=== PATIENT | female | born 1940 | race Caucasian/White ===

== ENCOUNTER → 2016-12-24 | Outpatient (CLI) | payer MEDICARE | END | disposition home or self-care (01) | LOC: EDSTATUS 09:00 → CFH 09:04 | PROVIDERS: ATTEND Internal Medicine | DX: I34.0 Nonrheumatic mitral (valve) insufficiency (principal); G45.9 Transient cerebral ischemic attack, unspecified | CPT/HCPCS: 93306 ==

== ENCOUNTER → 2018-04-11 | Outpatient (CLI) | payer MEDICARE | END | disposition home or self-care (01) | LOC: CVU 09:41 | PROVIDERS: ATTEND Internal Medicine Cardiovascular Disease | DX: I08.0 Rheumatic disorders of both mitral and aortic valves (principal) | CPT/HCPCS: 93306 ==

== ENCOUNTER 2019-07-30 08:00 | Day surgery (SDC) | payer MEDICARE ==
[~2019-07-30] VITALS: Ht 162.6 cm; Wt 62.0 kg
[2019-07-30 08:28] VITALS: BP 173/84
[2019-07-30] MEDS ORDERED: SODIUM CHLORIDE 0.9% 1,000 ML IV SCH (08:30)
[2019-07-30] MEDS ORDERED: CEFAZOLIN PMX 1GM/50ML 50 ML IV ONE (08:30)
[2019-07-30] MEDS ORDERED: CEFAZOLIN PMX 1GM/50ML 50 ML ONE (08:34)
[2019-07-30] MEDS ORDERED: MIDAZOLAM 1 MG/ML, 5ML ONE ×2 (09:23→09:24)
[2019-07-30] MEDS ORDERED: FENTANYL PF 100 MCG/2ML ONE (09:23)
[2019-07-30] MEDS ORDERED: NALOXONE 1 MG/ML, 2ML ONE (09:24)
[2019-07-30] MEDS ORDERED: FLUMAZENIL 0.1 MG/1 ML, 5ML ONE (09:24)
[2019-07-30] MEDS ORDERED: LIDOCAINE 1%, 10ML ONE (09:32)
[2019-07-30] MEDS ORDERED: LIDOCAINE 1%, 20ML ONE (09:32)
== END 2019-07-30 12:10 | disposition home or self-care (01) ==
LOC: OUT 08:00
PROVIDERS: ATTEND Internal Medicine Hematology & Oncology
DX: C50.812 Malignant neoplasm of overlapping sites of left female breast (principal)
CPT/HCPCS: 36561; 76937; 77001; 99156; 99157; C1788; C1894; J0690; J1642; J2250; J3010; J7030; J2310

== ENCOUNTER → 2019-08-05 | Outpatient (CLI) | payer MEDICARE | END | disposition home or self-care (01) | LOC: CVU 13:46 | PROVIDERS: ATTEND Internal Medicine Hematology & Oncology | DX: C50.812 Malignant neoplasm of overlapping sites of left female breast (principal); I08.8 Other rheumatic multiple valve diseases | CPT/HCPCS: 93306; 93356 ==

== ENCOUNTER → 2019-11-30 | Outpatient (CLI) | payer MEDICARE ==
[~2019-11-30] MED LIST: ASPI81TA45 PO; LOSA25TA25 PO; MELA5TAB14 PO; OMEP20TA62 PO; UBID100C24 PO; VITA1CAP PO
== END | disposition home or self-care (01) ==
LOC: STAR 14:17
PROVIDERS: ATTEND Anesthesiology
DX: Z01.812 Encounter for preprocedural laboratory examination (principal); Z20.828 Contact with and (suspected) exposure to other viral communicable diseases
CPT/HCPCS: 36415; 87635

== ENCOUNTER 2019-12-04 13:15 | Observation (INO) | payer MEDICARE ==
[~2019-12-04] VITALS: Ht 167.6 cm; Wt 59.9 kg
[2019-12-04] MEDS ORDERED: LACTATED RINGERS 1,000 ML IV SCH ×2 (13:34→20:00)
[2019-12-04] MEDS ORDERED: LIDOCAINE-MPF 1%, 2ML ONE (13:57)
[2019-12-04] MEDS ORDERED: LIDOCAINE-MPF 1%, 2ML INFIL ONE (14:00)
[2019-12-04] MEDS ORDERED: CHLORHEXIDINE 15 ML UDC ONE (14:05)
[2019-12-04] MEDS ORDERED: PROPOFOL 50 ML ONE (15:02)
[2019-12-04] MEDS ORDERED: MIDAZOLAM 1 MG/ML, 2ML ONE (15:02)
[2019-12-04] MEDS ORDERED: FENTANYL PF 250 MCG/5ML ONE (15:02)
[2019-12-04] MEDS ORDERED: EPINEPHRINE 1 MG/ML, 1ML ONE (15:10)
[2019-12-04] MEDS ORDERED: ISOSULFAN BLUE 10 MG/ML, 5ML IV ONE (15:10)
[2019-12-04] MEDS ORDERED: BUPIVACAINE/PF 0.5% ONE (15:10)
[2019-12-04] MEDS ORDERED: SCOPOLAMINE 1MG PATCH TD ONE (15:15)
[2019-12-04] MEDS ORDERED: ONDANSETRON 2MG/ML, 2ML ONE (15:26)
[2019-12-04] MEDS ORDERED: DEXAMETHASONE 4 MG/ML, 1ML ONE (15:26)
[2019-12-04] MEDS ORDERED: CEFAZOLIN 1,000 MG ONE ×2 (16:12→17:25)
[2019-12-04] MEDS ORDERED: BACITRACIN 50,000 UNIT ONE ×2 (16:12→17:26)
[2019-12-04] MEDS ORDERED: GENTAMICIN 80 MG/2 ML ONE ×2 (16:12→17:26)
[2019-12-04] MEDS ORDERED: PROPOFOL 10 MG/ML, 20ML ONE (18:35)
[2019-12-04] MEDS ORDERED: SUCCINYLCHOLINE 20 MG/ML, 10ML ONE (18:35)
[2019-12-04] MEDS ORDERED: ROCURONIUM 10MG/ML,5ML ONE (18:35)
[2019-12-04] MEDS ORDERED: MIDAZOLAM 1 MG/ML, 2ML IV PRN (19:00)
[2019-12-04] MEDS ORDERED: OXYcodone 5 MG/5 ML ORAL.SOL UDC PO PRN (19:00)
[2019-12-04] MEDS ORDERED: ACETAMINOPHEN 325 MG TABLET PO PRN (19:00)
[2019-12-04] MEDS ORDERED: FENTANYL PF 100 MCG/2ML IV PRN (19:00)
[2019-12-04] MEDS ORDERED: hydrALAzine 20 MG/ML, 1ML IV PRN (19:00)
[2019-12-04] MEDS ORDERED: LABETALOL 5MG/ML, 20ML IV PRN (19:00)
[2019-12-04] MEDS ORDERED: MEPERIDINE/PF 25MG/0.5ML IVPush PRN (19:00)
[2019-12-04] MEDS ORDERED: HYDROmorphone 1 MG/ML, 1ML INJ IVPush PRN (19:00)
[2019-12-04] MEDS ORDERED: ONDANSETRON 2MG/ML, 2ML IVPush PRN (19:00)
[2019-12-04] MEDS ORDERED: ACETAMINOPHEN 650 MG/20.3 ML UDC ONE (19:03)
[2019-12-04] MEDS ORDERED: FENTANYL PF 100 MCG/2ML ONE (19:03)
[2019-12-04] MEDS ORDERED: OXYcodone 5 MG/5 ML ORAL.SOL UDC ONE (19:04)
[2019-12-04 20:15] VITALS: BP 131/56
[2019-12-04] MEDS ORDERED: MORPHINE SULFATE 4 MG/ML, 1ML IV PRN (20:30)
[2019-12-04] MEDS ORDERED: HYDROcodone/APAP 5/325 TABLET PO PRN (20:30)
[2019-12-04] MEDS ORDERED: ONDANSETRON 2MG/ML, 2ML IV PRN (20:30)
[2019-12-05] MEDS ORDERED: CEFAZOLIN PMX 1GM/50ML 50 ML IVPB SCH (01:30)
== END 2019-12-04 22:03 | disposition home or self-care (01) ==
LOC: OUT 13:15 → 4NE 19:45 → OUT 20:21 → 4NE 20:21
PROVIDERS: ADMIT Surgery; ATTEND Surgery
DX: C50.812 Malignant neoplasm of overlapping sites of left female breast (principal); Z17.1 Estrogen receptor negative status [ER-]; Z86.73 Personal history of transient ischemic attack (TIA), and cerebral infarction without residual deficits; Z79.82 Long term (current) use of aspirin; Z15.01 Genetic susceptibility to malignant neoplasm of breast; Z92.21 Personal history of antineoplastic chemotherapy
CPT/HCPCS: 19303; 19357; 38525; 38792; 88305; 88307; 88333; C1729; C1762; C1789; G0378; J0171; J0330; J0690; J1100; J1580; J2250; J2405; J2704; J3010; J3490; J7120; S0020